=== PATIENT | male | born 1970 | race African-American/Black ===

== ENCOUNTER 2017-09-26 20:24 | Emergency (ER) | payer SELFPAY ==
[~2017-09-26 20:24] MED LIST: ISOVUE-370 76%-LOCM 1 ML ONE
[2017-09-26] MEDS ORDERED: Lidocaine 1% w/Epinephrine 1:200K 30 ML VIAL ONE (20:56)
[2017-09-26 21:32] LABS: #Basophils 0.1 thou/uL (0.0-0.2); #Eosinphils 0.1 thou/uL (0.0-0.7); #Lymphocytes 2.4 thou/uL (1.20-3.40); #Monocytes 0.7 thou/uL (0.11-0.59); #Neutrophils 7.4 thou/uL (1.40-6.50); %Basophils 0.6 % (0.0-1.0); %Eosinophils 0.7 % (0.0-10.0); %Lymphocytes 22.7 % (21.0-51.0); %Monocytes 6.5 % (0.0-10.0); Hematocrit 44.2 % (42.0-52.0); Mean Platelet Volume 7.8 fL (7.4-10.4); Red Blood Cell (RBC) Count 4.73 mill/uL (4.70-6.10); White Blood Cell (WBC) Count 10.6 thou/uL (4.8-10.8)
[2017-09-26] MEDS ORDERED: Morphine 4 MG/ML VIAL ONE (21:36)
[2017-09-26 21:54] LABS: ALT (SGPT) 8 U/L (8-55); AST (SGOT) 10 U/L (5-34); Alkaline Phosphatase 42 U/L (40-150); Anion Gap 13 mmol/L (10-20); BUN (Urea Nitrogen) 9 mg/dL (8.9-20.6); Bilirubin, Total 0.5 mg/dL (0.2-1.2); Calc. Creatinine Clearance 0 mL/min (70-130); Calcium 9.3 mg/dL (7.8-10.44); Carbon Dioxide 28 mmol/L (22-29); Chloride 104 mmol/L (98-107); Estimated GFR-MDRD 62; Globulin 3.3 g/dL (2.4-3.5)
--- NOTE | 2017-09-26 22:30 | CT ---
CT PELVIS WITH CONTRAST: 09/26/17 Multiple axial tomograms obtained through the pelvis with IV enhancement. HISTORY: Perianal abscess. FINDINGS: There is evidence of a perianal abscess seen posterior to the anus in the midline which measures appr oximately 2.5 cm. There is a thickened wall with surrounding inflammatory stranding, best appreciated in the sagittal projection. No intrapelvic abnormality seen. The visualized prostate, bladder and bowel loops appear unremarkable . The appendix is visualized and is normal in appearance. IMPRESSION: Evidence of a small perianal abscess. POS: [facility]
== END 2017-09-26 23:34 | disposition home or self-care (01) ==
LOC: ERS 20:24
DX: L02.215 Cutaneous abscess of perineum (principal); L03.317 Cellulitis of buttock; I10 Essential (primary) hypertension; F17.210 Nicotine dependence, cigarettes, uncomplicated
CPT/HCPCS: 36415; 46050; 72193; 80053; 85025; 96361; 96374; 99406; J2270

== ENCOUNTER 2018-09-21 00:08 | Emergency (ER) | payer SELFPAY | END 2018-09-21 01:41 | disposition home or self-care (01) | LOC: ERS 00:08 | DX: G56.01 Carpal tunnel syndrome, right upper limb (principal); I10 Essential (primary) hypertension; F17.210 Nicotine dependence, cigarettes, uncomplicated; Z79.899 Other long term (current) drug therapy | CPT/HCPCS: 99283 ==

== ENCOUNTER 2018-09-25 22:26 | Emergency (ER) | payer SELFPAY ==
--- NOTE | 2018-09-25 23:22 | RAD ---
RIGHT HAND: 09/25/18 Three views. HISTORY: Right hand pain. Carpals appear normally aligned. The metacarpals appear intact. There is slight deformity involving t he head and neck of the fifth metacarpal suggesting an old fracture injury. No acute fracture identif ied. Mild degenerative changes at the IP joints. IMPRESSION: Deformity of the distal fifth metacarpal suggests old injury. No acute fracture identified. POS: [facility]
== END 2018-09-25 23:39 | disposition home or self-care (01) ==
LOC: ERS 22:26
DX: G56.01 Carpal tunnel syndrome, right upper limb (principal); F17.210 Nicotine dependence, cigarettes, uncomplicated; I10 Essential (primary) hypertension; Z71.6 Tobacco abuse counseling; Z79.899 Other long term (current) drug therapy; W23.0XXA Caught, crushed, jammed, or pinched between moving objects, initial encounter

== ENCOUNTER 2019-03-25 14:32 | Emergency (ER) | payer SELFPAY ==
[2019-03-25] MEDS ORDERED: Ketorolac Tromethamine 30 MG/ML VIAL ONE ×2 (15:35→18:00)
[2019-03-25] MEDS ORDERED: Labetalol HCl 100 MG/20 ML VIAL ONE (15:35)
[2019-03-25] MEDS ORDERED: Ondansetron PF 4 MG/2 ML Vial ONE (15:36)
[2019-03-25] MEDS ORDERED: diphenhydrAMINE 50 MG/ML VIAL ONE (18:00)
[2019-03-25] MEDS ORDERED: Metoclopramide HCl 10 MG/2 ML VIAL ONE (18:00)
== END 2019-03-25 15:36 | disposition left against medical advice (07) ==
LOC: ERS 14:32
DX: R51 Headache (principal); R61 Generalized hyperhidrosis; R06.02 Shortness of breath; I10 Essential (primary) hypertension; F17.210 Nicotine dependence, cigarettes, uncomplicated
CPT/HCPCS: J1200; J1885; J2405; J2765

== ENCOUNTER 2019-03-25 17:24 | Observation (INO) | payer SELFPAY ==
[2019-03-25 18:07] LABS: #Basophils 0.1 thou/uL (0.0-0.2); #Eosinphils 0.1 thou/uL (0.0-0.7); #Lymphocytes 2.4 thou/uL (1.20-3.40); #Monocytes 0.3 thou/uL (0.11-0.59); #Neutrophils 3.5 thou/uL (1.40-6.50); %Basophils 1.3 % (0.0-1.0); %Eosinophils 1.5 % (0.0-10.0); %Lymphocytes 37.5 % (21.0-51.0); %Monocytes 4.2 % (0.0-10.0); %Neutrophils 55.6 % (42.0-75.0); Hemoglobin 15.2 g/dL (14.0-18.0); Mean Corpuscular HGB CONC 33.3 g/dL (32.0-36.0); Mean Corpuscular Hemoglobin 30.7 pg (27.0-31.0); Mean Corpuscular Volume 92.2 fL (78.0-98.0); Mean Platelet Volume 9.5 fL (7.4-10.4); Platelet Count 162 thou/uL (130-400); RBC Distribution Width 12.2 % (11.5-14.5); Red Blood Cell (RBC) Count 4.96 mill/uL (4.70-6.10); White Blood Cell (WBC) Count 6.3 thou/uL (4.8-10.8)
[2019-03-25] MEDS ORDERED: Ondansetron PF 4 MG/2 ML Vial ONE (18:36)
[2019-03-25] MEDS ORDERED: cloNIDine 0.1 MG TAB ONE ×2 (18:39→21:23)
--- NOTE | 2019-03-25 18:43 | CT ---
CT brain HISTORY: Headache. The patient does not give a history of trauma. Noncontrast enhanced images of the brain obtained. There is a left parietal scalp hematoma seen. Has there been acute trauma? No underlying calvarial fracture seen. No evidence of intracranial masses, hemorrhages or strokes seen. IMPRESSION: Left parietal scalp soft tissue density compatible with hematoma. No intracranial abnorma lity seen. Findings called to Dr. Finney at 6:39 PM on 03/25/2019. Code CR
--- NOTE | 2019-03-25 18:51 | RAD ---
AP view chest. HISTORY: Hypertension and headache. AP view chest is obtained. Cardiomegaly noted. Pulmonary vascular congestion seen. There is an area of linear density in the left midlung possibly representing atelectasis or patchy pn eumonia. IMPRESSION: Cardiomegaly and left midlung area of scar or pneumonia.
[2019-03-25 18:57] LABS: ALT (SGPT) 32 U/L (8-55); AST (SGOT) 23 U/L (5-34); Albumin 3.9 g/dL (3.5-5.0); Alkaline Phosphatase 52 U/L (40-150); Anion Gap 12 mmol/L (10-20); BUN (Urea Nitrogen) 14 mg/dL (8.9-20.6); Bilirubin, Total 0.4 mg/dL (0.2-1.2); Calc. Creatinine Clearance 0 mL/min (70-130); Calcium 9.7 mg/dL (7.8-10.44); Carbon Dioxide 26 mmol/L (22-29); Chloride 106 mmol/L (98-107); Estimated GFR-MDRD 55; Globulin 3.5 g/dL (2.4-3.5); Glucose 173 mg/dL (70-105); Potassium 4.1 mmol/L (3.5-5.1); Protein, Total 7.4 g/dL (6.0-8.3); Sodium 140 mmol/L (136-145)
[2019-03-25] MEDS ORDERED: hydrALAZINE 20 MG/ML VIAL ONE (20:12)
[2019-03-25] MEDS ORDERED: Nitroglycerin 2% Ointment 1 INCH/1 GM Packet ONE (22:49)
[2019-03-26] MEDS ORDERED: Ondansetron PF 4 MG/2 ML Vial IVP PRN ×2 (02:00→07:48)
[2019-03-26] MEDS ORDERED: Acetaminophen 325 MG TAB PO PRN ×2 (02:00→07:48)
[2019-03-26] MEDS ORDERED: Ondansetron ODT 4 MG TAB SL PRN (02:00)
[2019-03-26 02:40] LABS: Troponin I Less than 0.010 ng/mL (< 0.028)
[2019-03-26 06:01] LABS: Troponin I 0.024 ng/mL (< 0.028)
[2019-03-26] MEDS ORDERED: HYDROcodone/Acetaminophen 5/325 mg Tablet PO PRN (07:48)
[2019-03-26] MEDS ORDERED: Senokot S 8.6-50 MG TAB PO PRN (07:48)
[2019-03-26] MEDS ORDERED: Labetalol HCl 100 MG/20 ML VIAL SLOW IVP PRN (07:48)
[2019-03-26] MEDS ORDERED: cloNIDine 0.1 MG TAB PO PRN (07:48)
[2019-03-26] MEDS ORDERED: Diabetic Tussin 200 MG/10 ML UDCUP PO PRN (07:48)
[2019-03-26] MEDS ORDERED: Eucerin (Mineral Oil/Petrolatum,White) 30 gm Jar TOP PRN (07:48)
[2019-03-26] MEDS ORDERED: Bisacodyl 10 MG SUPP PR PRN (07:48)
[2019-03-26] MEDS ORDERED: Zolpidem Tartrate 5 MG TAB PO PRN (07:48)
[2019-03-26] MEDS ORDERED: Sodium Chloride 0.65% Nasal 44 ML BOT EA NARE PRN (07:48)
[2019-03-26] MEDS ORDERED: hydrALAZINE 20 MG/ML VIAL SLOW IVP PRN (07:48)
[2019-03-26] MEDS ORDERED: Loperamide HCl 2 MG CAP PO PRN (07:48)
[2019-03-26] MEDS ORDERED: Ondansetron ODT 4 MG TAB PO PRN (07:48)
[2019-03-26] MEDS ORDERED: Artificial Tears 18 DROP/0.9 ML EA EYE PRN (07:48)
[2019-03-26] MEDS ORDERED: Cepastat Lozenges 1 LOZ PO PRN (07:48)
[2019-03-26] MEDS ORDERED: Loratadine 10 MG TAB PO PRN (07:48)
[2019-03-26] MEDS ORDERED: Calcium Carbonate 500 MG ChewTAB PO PRN (07:48)
[2019-03-26] MEDS ORDERED: Famotidine 20 MG TAB PO SCH (09:00)
[2019-03-26] MEDS ORDERED: Lisinopril 20 MG TAB PO SCH (09:00)
[2019-03-26] MEDS ORDERED: Aspirin Chewable 81 MG TAB PO SCH (09:00)
[2019-03-26] MEDS ORDERED: Amlodipine 10 MG TAB PO SCH (09:00)
--- NOTE | 2019-03-26 11:34 | SS ---
DATE OF ADMISSION: 03/26/2019 DATE OF DISCHARGE: 03/26/2019 PRIMARY CARE PHYSICIAN: Dr. Hoyos. REASON FOR ADMISSION: Hypertensive urgency and chest pain. HISTORY OF PRESENT ILLNESS: A 48-year-old male, who has a history of hypertension. He was taking three different blood pressure medication, but he was not taking those medication for last three months because he ran out of medication and he did not follow up with primary care physician. The patient presented to emergency room because he was having headache, chest pain, dizziness, and shortness of breath. This was going on for last couple of days, but symptoms started yesterday, worse and that is why he decided to come to emergency room in afternoon time. In the emergency room, the patient was given several medication to control his blood pressure, but his blood pressure was high and he was having headache and that is why finally around midnight, ER physician decided to admit for further evaluation. When he presented to emergency room, his highest blood pressure was 228/121, which has been improved after emergency room treatment and the patient felt clinically better, but when they applied nitroglycerin patch that gave him headache again and he was having some weird, vague chest discomfort and shortness of breath. He had never been evaluated for heart. Initially this morning, the patient decided to go home, but when I saw him, and at that time explained him about the necessity of more evaluation and that he agreed for going for stress test. We decided to do stress test because he was complaining of chest pain, which was substernal without any radiation, without any association of nausea and vomiting. He denies any fever or chills. He denies any UTI symptoms. He denies any constipation, diarrhea, or melena. He denies any headache at this point. He denies any focal neurological deficit. He denies any illicit drug abuse. PAST MEDICAL HISTORY: Hypertension, medication noncompliance, and CKD stage 3. PAST SURGICAL HISTORY: Left hand surgery. PAST PSYCHIATRIC HISTORY: Reviewed and negative. SOCIAL HISTORY: The patient denies any alcohol abuse, denies any other illicit drug abuse. He quit smoking three weeks ago. FAMILY HISTORY: Hypertension and heart disease to his father. CURRENT HOME MEDICATIONS: The patient was not taking any medication, but he was on clonidine 0.1 mg b.i.d., amlodipine 10 mg daily, and lisinopril 20 mg p.o. daily. ALLERGIES: NO KNOWN DRUG ALLERGY. EMERGENCY ROOM COURSE: The patient was given nitroglycerin patch, hydralazine 10 mg, clonidine 0.1 mg, Zofran 4 mg, Reglan 10 mg, Toradol 15 mg, IV fluid 1 L, and Benadryl 25 mg. PHYSICAL EXAMINATION: VITAL SIGNS: Highest blood pressure in the emergency room 228/121, pulse 65, respiratory rate 18, temperature 97.9, and oxygen saturation 98% on room air. Weight 95.3 kg. GENERAL: The patient is currently alert and awake, in no obvious acute distress. HEENT: Head; normocephalic and atraumatic. Eyes; pupils are round and reactive to light. Extraocular muscle intact. ENT; oropharynx within normal limits. Moist mucous membranes. No oral lesion. No pharyngeal erythema. No exudate. NECK: Supple. No JVD. No thyromegaly. No carotid bruit. No jugular venous distention. LUNGS: Clear to auscultation without any rhonchi or rales. CARDIAC: S1 and S2 regular. No murmur. No gallop. No rub. ABDOMEN: Soft. Bowel sounds present. Nontender. Nondistended. No organomegaly. No mass. No suprapubic tenderness. BACK: Examination unremarkable. No CVA tenderness. EXTREMITIES: Upper extremities, passive movement of all joints are normal. Lower extremities, no edema. Good distal pulsation. SKIN: No skin rash. HEMATOLOGIC: No lymphadenopathy. NEUROLOGIC: Nonfocal examination. Cranial nerves 2 through 12 intact. Alert and oriented x3. Motor 5 x 5 in all 4 limbs. Sensations, symmetrical. Reflexes, normal. No cerebellar sign. Plantar bilateral flexor. Head examination, the patient does not have any evidence of hematoma or any tenderness on the scalp. ADDITIONAL INFORMATION: CT brain in the emergency room showed left parietal scalp soft tissue density compatible with hematoma, but this patient did not have any acute or subacute injury to that area and clinically, the patient does not have any hematoma on examination. SIGNIFICANT LABORATORY DATA: Chest x-ray based on my review, no acute cardiopulmonary process. CT brain reported a left scalp hematoma, but I mentioned clinically patient does not have any evidence of hematoma or any injury. CBC; WBC 6.3, hemoglobin 15.2, and platelets are 162. BMP; sodium 140, potassium 4.1, chloride 106, carbon dioxide 26, BUN 14, creatinine 1.65, glucose 173, calcium 9.7. LFT; AST 23, ALT 32, alkaline phosphatase 52, and albumin 3.9. Cardiac enzyme, negative x4. ASSESSMENT/PLAN: 1. Hypertensive urgency. This patient's clinical presentation with headache, dizziness, chest discomfort, and shortness of breath, all related with very high blood pressure on admission and that was related with his noncompliance with the treatment. At this point after emergency room treatment and starting his home medication, his blood pressure has been improved. We will monitor his blood pressure for few more hours. 2. Chest pain, most likely related with very high blood pressure. EKG is not showing any acute ischemic changes. Troponins are negative. For further evaluation, we will do stress test today and if stress test is negative, then the patient will be able to go home later on today. 3. Chronic kidney disease, stage 3. We will monitor renal function. We will check urinalysis and urine drug screen. 4. Medication noncompliance. The patient is given education about medication compliance. 5. Scalp hematoma. CT reported scalp hematoma, but when examined clinically, the patient does not have any evidence of scalp hematoma. 6. DVT prophylaxis, not needed because we are expecting discharge soon. 7. Gastrointestinal prophylaxis, Pepcid 20 mg p.o. b.i.d. CODE STATUS: The patient is full code. DISPOSITION PLAN: Based on stress test result. DISCHARGE DISPOSITION: Home. PRIMARY DISCHARGE DIAGNOSES: Hypertensive urgency, chest pain, ruled out acute coronary syndrome. SECONDARY DISCHARGE DIAGNOSES: Hypertension and CKD stage 3. PRIMARY PROCEDURE/OPERATION: None. RADIOLOGICAL INVESTIGATION: CT brain, chest x-ray, and stress test. SIGNIFICANT LABORATORY DATA: Creatinine 1.65. True cardiac enzyme, negative. CBC, normal. DISCHARGE MEDICATIONS: 1. Amlodipine 10 mg daily. 2. Clonidine 0.1 mg b.i.d. 3. Lisinopril 20 mg p.o. daily. CONTRAINDICATION: None. INPATIENT LINING FINISHER: None. ALLERGIES: NO KNOWN DRUG ALLERGIES. DISCHARGE PLAN: Posthospital, the patient will follow up with primary care physician in one week. HOSPITAL COURSE: A 48-year-old male, who was admitted for chest pain, shortness of breath, dizziness, and headache that was related with his hypertensive urgency in the emergency room, which was controlled with medication. His symptoms were improved with better blood pressure control. His troponins were negative. His EKG and monitor were unremarkable. We did stress tests and result is pending by the time of dictation. If stress test is negative, then the patient will be able to go home later on today with the above-mentioned medication. The patient is given education about medication compliance and he will follow up with primary care physician. STRESS TEST CAME NEGATIVE AND PT WAS INFORMED ABOUT RESULT, HE WANTED TO GO HOME PT IS ADMITTED AND DISCHARGED ON SAME DAY Job ID: [id number] [facility]
--- NOTE | 2019-03-26 12:45 | NM ---
EXAM: CARDIAC SPECT HISTORY: Chest pain TECHNIQUE: A myocardial perfusion scan was performed using the single isotope 1 day protocol with nikki hnetium 99m sestamibi. [10 mCi] was injected intravenously for the rest exam followed by 30 mCi for the stress study. Pharmacologic stress with adenosine was monitored and interpreted by Mani Cameron, nurse practitioner. FINDINGS: Homogeneous tracer distribution is seen in the myocardial segments on stress and rest image s without fixed or reversible defects. The left ventricular cavity is dilated. Gated SPECT LVEF: 43% Wall motion exam: Global hypokinesis IMPRESSION: No evidence of reversible ischemia
[2019-03-26 12:57] VITALS: BP 151/91
[2019-03-26 13:06] VITALS: TEMP 97.7
[2019-03-26 13:12] LABS: Bilirubin Small (Negative); Blood, Urine Negative (Negative); Clarity CLEAR (Clear); Glucose, Urine (Dipstick) Negative (Negative); Leukocyte Negative (Negative); Nitrite Negative (Negative); Protein, Urine (Dipstick) 100 mg/dL (Neg-Trace)
[2019-03-26 13:15] LABS: Bacteria/HPF None Seen HPF (None Seen); Hyaline Casts/LPF 4-6 HYALINE CAST LPF (0-3 Hyaline); Pathc Cast-AUWi Flag 0.54 (0-2.49); RBC/HPF 0-3 HPF (0-3); Squamous Epithelial 0-3 HPF (0-3)
[2019-03-26 13:26] LABS: Amphetamine Not Detected (NotDetected); Barbiturates Screen Not Detected (NotDetected); Benzodiazepine Screen Not Detected (NotDetected); Cocaine Metabolite Screen Not Detected (NotDetected); Medtox Control Line Valid? VALID (VALID); Medtox Reader # READER 1; Methadone Not Detected (NotDetected); Methamphetamine Not Detected (NotDetected); Opiate Screen Detected (NotDetected); Oxycodone Screen Not Detected (NotDetected); Phencyclidine (PCP) Not Detected (NotDetected); THC/Cannabinoid Screen Not Detected (NotDetected); Tricyclic Screen Not Detected (NotDetected)
[2019-03-26] MEDS ORDERED: ADENOSINE 60 MG/20 ML VIAL ONE (16:06)
--- NOTE | 2019-03-27 21:16 | PDOC.EVN ---
Event Note - Event Note Event Note: Pt given excuse to return to work, as per records he was released on the and able to work on the
== END 2019-03-26 14:52 | disposition home or self-care (01) ==
LOC: ERS 17:24 → 2SW 03-26 01:26
PROVIDERS: ADMIT Hospitalist; ATTEND Hospitalist
DX: I16.0 Hypertensive urgency (principal); R07.2 Precordial pain; I12.9 Hypertensive chronic kidney disease with stage 1 through stage 4 chronic kidney disease, or unspecified chronic kidney disease; N18.3 Chronic kidney disease, stage 3 (moderate); Z87.891 Personal history of nicotine dependence; Z79.899 Other long term (current) drug therapy; Z91.14 Patient's other noncompliance with medication regimen
CPT/HCPCS: 36415; 70450; 71045; 78452; 80053; 80306; 81003; 81015; 84484; 85025; 93005; 93017; 96361; 96365; 96375; A9500; G0378; J0153; J0360; J2405; Q0162

== ENCOUNTER 2019-07-20 01:00 | Emergency (ER) | payer OTHER, SELFPAY ==
[2019-07-20] MEDS ORDERED: Amlodipine 5 MG TAB ONE (03:06)
== END 2019-07-20 03:40 | disposition home or self-care (01) ==
LOC: ERS 01:00
DX: I10 Essential (primary) hypertension (principal); F17.210 Nicotine dependence, cigarettes, uncomplicated; Z76.0 Encounter for issue of repeat prescription; Z79.899 Other long term (current) drug therapy
CPT/HCPCS: 99283

== ENCOUNTER 2019-11-21 07:04 | Inpatient (IN) | payer OTHER, SELFPAY ==
[2019-11-21] MEDS ORDERED: hydrALAZINE 20 MG/ML VIAL ONE (07:43)
[2019-11-21] MEDS ORDERED: Nitroglycerin 2% Ointment 1 INCH/1 GM Packet ONE (07:43)
[2019-11-21] MEDS ORDERED: Aspirin Chewable 81 MG TAB ONE (07:43)
[2019-11-21 07:51] LABS: #Basophils 0.1 thou/uL (0.0-0.2); #Eosinphils 0.2 thou/uL (0.0-0.7); #Lymphocytes 2.6 thou/uL (1.20-3.40); #Monocytes 0.3 thou/uL (0.11-0.59); #Neutrophils 3.4 thou/uL (1.40-6.50); %Basophils 0.8 % (0.0-1.0); %Eosinophils 2.6 % (0.0-10.0); %Monocytes 5.2 % (0.0-10.0); %Neutrophils 51.5 % (42.0-75.0); Hemoglobin 15.5 g/dL (14.0-18.0); Mean Corpuscular HGB CONC 33.6 g/dL (32.0-36.0); Mean Corpuscular Hemoglobin 30.8 pg (27.0-31.0); Mean Corpuscular Volume 91.8 fL (78.0-98.0); Platelet Count 146 thou/uL (130-400); RBC Distribution Width 12.9 % (11.5-14.5); Red Blood Cell (RBC) Count 5.03 mill/uL (4.70-6.10); White Blood Cell (WBC) Count 6.6 thou/uL (4.8-10.8)
--- NOTE | 2019-11-21 07:59 | RAD ---
XR Chest 1 View Portable HISTORY: Chest pain and shortness of breath COMPARISON: 03/25/2019 FINDINGS: The heart size is prominent but stable. The lungs are well expanded without focal areas of consolidation, pneumothorax or pleural effusions. There is no evidence of mireya pulmonary edema. IMPRESSION: No radiographic evidence of acute cardiopulmonary process.
[2019-11-21] MEDS ORDERED: Diltiazem 125 MG/25 ML ONE (09:33)
[2019-11-21] MEDS ORDERED: niCARdipine 25 MG in Sodium Chloride 0.9% 250 ML 240 ML IVPB SCH (09:45)
[2019-11-21 10:02] LABS: ALT (SGPT) 19 U/L (8-55); AST (SGOT) 15 U/L (5-34); Albumin 3.9 g/dL (3.5-5.0); Alkaline Phosphatase 51 U/L (40-110); Anion Gap 9 mmol/L (10-20); BUN (Urea Nitrogen) 15 mg/dL (8.9-20.6); Bilirubin, Total 0.6 mg/dL (0.2-1.2); CK (CPK) 532 U/L (30-200); Calc. Creatinine Clearance 0 mL/min (70-130); Calcium 8.8 mg/dL (7.8-10.44); Carbon Dioxide 26 mmol/L (22-29); Chloride 109 mmol/L (98-107); Estimated GFR-MDRD 45; Globulin 3.2 g/dL (2.4-3.5); Glucose 109 mg/dL (70-105); Lipase 16 U/L (8-78); Protein, Total 7.1 g/dL (6.0-8.3); Sodium 140 mmol/L (136-145)
[2019-11-21] MEDS ORDERED: Iopamidol-370 76% 500 ML 1 ML ONE (10:20)
--- NOTE | 2019-11-21 10:53 | CT ---
CT PULMONARY ANGIOGRAM WITH IV CONTRAST AND 3-D POSTPROCESSING: HISTORY:Chest pain and shortness of breath FINDINGS: There is good contrast opacification of the pulmonary arterial vasculature without filling defects to suggest pulmonary embolism. The thoracic aorta is without aneurysm. No pleural or pericardial effusions are seen. No pneumothoraces, focal areas of consolidation or lung nodules are noted. There are degenerative changes in the spine. There are atrophic changes in the left pectoral musculat ure. IMPRESSION: No CT evidence of pulmonary embolism.
[2019-11-21 11:26] LABS: Acetaminophen Less than 6.0 mcg/mL (10.0-30.0); Alcohol Less than 10 mg/dL (Less than 10); Salicylate Less than 8.0 mg/dL (15.0-30.0)
[2019-11-21 11:49] LABS: Amphetamine Not Detected (NotDetected); Barbiturates Screen Not Detected (NotDetected); Benzodiazepine Screen Not Detected (NotDetected); Cocaine Metabolite Screen Not Detected (NotDetected); Medtox Control Line Valid? VALID (VALID); Medtox Reader # READER 4; Methadone Not Detected (NotDetected); Methamphetamine Not Detected (NotDetected); Opiate Screen Not Detected (NotDetected); Oxycodone Screen Not Detected (NotDetected); Phencyclidine (PCP) Not Detected (NotDetected); THC/Cannabinoid Screen Not Detected (NotDetected); Tricyclic Screen Not Detected (NotDetected)
[2019-11-21 13:12] LABS: Troponin I Less than 0.010 ng/mL (< 0.028)
[2019-11-21] MEDS ORDERED: cloNIDine 0.1 MG TAB PO SCH (14:00)
[2019-11-21] MEDS: Acetaminophen 325 MG TAB PO PRN ×2 (14:05→20:29)
[2019-11-21] MEDS: Nicotine 14 MG PATCH TD SCH (14:05)
[2019-11-21 14:28] VITALS: BMI 30.9
[2019-11-21 15:48] LABS: Troponin I Less than 0.010 ng/mL (< 0.028)
[2019-11-21] MEDS: hydrALAZINE 25 MG TAB PO SCH ×2 (17:44→20:29)
[2019-11-21] MEDS: Famotidine 20 MG TAB PO SCH (20:29)
[2019-11-21] MEDS: cloNIDine 0.1 MG TAB PO SCH (20:29)
--- NOTE | 2019-11-21 23:35 | HP ---
CHIEF COMPLAINT: Chest pain, shortness of breath. HISTORY OF PRESENT ILLNESS: The patient is a 49-year-old male with a past medical history of diabetes and hypertension, who presents to the hospital with complaints of chest pain and shortness of breath x1 day. The patient stated that his blood pressure has been high for the past few weeks. He has been having palpitations at times. However, today, he started having chest pain and shortness of breath, so he came into the hospital for further evaluation. The patient states that he has been compliant with his medications. However, he has been eating very salty foods, canned foods, frozen meals, and has been drinking a lot of soda. The patient denies any fevers or chills, any nausea, vomiting, or diarrhea. PAST MEDICAL HISTORY: Has a history of hypertension, diabetes. He has chronic kidney disease stage 3. SOCIAL HISTORY: He currently smokes half a pack a day. Denies any alcohol use, any drug use. He is a full code. Lives with his . FAMILY HISTORY: History of diabetes. ALLERGIES: NO KNOWN DRUG ALLERGIES. MEDICATIONS: 1. Clonidine 0.1 twice a day. 2. Lisinopril 20 mg daily. 3. Amlodipine 10 mg daily. PHYSICAL EXAMINATION: VITAL SIGNS: Temperature was 97.7. His respirations were 18. His blood pressure initially in the ER 224/139. CV: S1 and S2 present. No murmurs, rubs, or gallops. LUNGS: Clear to auscultation. No rhonchi or wheezes noted. ABDOMEN: Soft, obese, nontender. Bowel sounds are present x2. He does have some epigastric tenderness. EXTREMITIES: Lower extremity, no edema. Pedal pulses are present x2. Neurovascular jimenez, no focal deficits noted. SKIN: No cuts, lesions or bruises noted. LABORATORY RESULTS: WBC is 6.6, hemoglobin of 15.5, hematocrit of 46.2. Chemistry; sodium 140, potassium of 4.0, BUN of 15, creatinine of 1.93. His troponin x3 were negative. BNP was 124. The patient had a CTA, which was negative for PE. He has had a stress test which was done in March, which indicated an EF of 49% with global hypokinesia. ASSESSMENT AND PLAN: The patient is a 49-year-old male, who presents to the hospital with chest pain and shortness of breath. 1. Hypertensive urgency. The patient initially was on a Cardene drip. His blood pressure then improved to 150s. At this time, he was transitioned to oral antihypertensives. I have advised him and educated him about his diet intake, which has a lot to do with his uncontrolled blood pressure. We will titrate his blood pressure medications and hope that he will improve. We will also get an echocardiogram. The patient currently has no chest pain. His troponins x3 were negative. His BNP has been mildly elevated. 2. Obesity. He has been advised to weight loss. 3. Smoking. I will put him on a patch. I have advised him against smoking. 4. Deep venous thrombosis prophylaxis. We will put the patient on SCDs. Job ID: [id number]
[2019-11-22] MEDS ORDERED: hydrALAZINE 20 MG/ML VIAL SLOW IVP PRN (04:16)
[2019-11-22 04:37] LABS: #Eosinphils 0.2 thou/uL (0.0-0.7); #Lymphocytes 2.2 thou/uL (1.20-3.40); #Monocytes 0.4 thou/uL (0.11-0.59); #Neutrophils 4.1 thou/uL (1.40-6.50); %Basophils 0.5 % (0.0-1.0); %Eosinophils 2.4 % (0.0-10.0); %Lymphocytes 32.2 % (21.0-51.0); Hemoglobin 14.2 g/dL (14.0-18.0); Mean Corpuscular HGB CONC 33.3 g/dL (32.0-36.0); Mean Corpuscular Hemoglobin 30.5 pg (27.0-31.0); Mean Corpuscular Volume 91.6 fL (78.0-98.0); Mean Platelet Volume 9.4 fL (7.4-10.4); Platelet Count 137 thou/uL (130-400); RBC Distribution Width 12.9 % (11.5-14.5); Red Blood Cell (RBC) Count 4.66 mill/uL (4.70-6.10); White Blood Cell (WBC) Count 6.9 thou/uL (4.8-10.8)
[2019-11-22 04:48] LABS: Anion Gap 10 mmol/L (10-20); BUN (Urea Nitrogen) 16 mg/dL (8.9-20.6); Calc. Creatinine Clearance 69 mL/min (70-130); Calcium 8.7 mg/dL (7.8-10.44); Carbon Dioxide 24 mmol/L (22-29); Chloride 111 mmol/L (98-107); Estimated GFR-MDRD 47; Glucose 106 mg/dL (70-105); Potassium 3.7 mmol/L (3.5-5.1); Sodium 141 mmol/L (136-145)
[2019-11-22] MEDS: hydrALAZINE 25 MG TAB PO SCH ×2 (08:39→12:50)
[2019-11-22] MEDS: cloNIDine 0.1 MG TAB PO SCH (08:39)
[2019-11-22] MEDS: Famotidine 20 MG TAB PO SCH (08:40)
[2019-11-22] MEDS ORDERED: Lisinopril 20 MG TAB PO SCH (09:00)
[2019-11-22] MEDS ORDERED: Amlodipine 10 MG TAB PO SCH (09:00)
[2019-11-22] MEDS ORDERED: Enoxaparin Sodium 40 MG/0.4 ML SYRINGE SC SCH (09:00)
[2019-11-22] MEDS: Nicotine 14 MG PATCH TD SCH (13:04)
[2019-11-22 15:32] VITALS: BP 157/98; TEMP 98.6
--- NOTE | 2019-11-22 17:15 | DIS ---
DATE OF ADMISSION: 11/21/2019 DATE OF DISCHARGE: 11/22/2019 DISCHARGE DIAGNOSES: 1. Chest pain. 2. Hypertensive urgency. 3. Chronic kidney disease, stage 3. HOSPITAL COURSE: The patient is a 49-year-old male, who initially presented to the hospital with chest pain. The patient states that he has been taking his blood pressure medication; however, his blood pressure has been very uncontrolled. He has been eating a lot of salty foods with TV dinners and canned foods. The patient states that he has been compliant with his medications at this time; however, they do not seem to be working. When he came into the ER, his systolic pressure was in the 200s and he was initially put on the Cardene drip. He was then titrated down to oral medications. His chest pain resolved. He had a stress test done in March of 2019, which indicated no evidence of reversible ischemia, wall motion was global hypokinesia and 43%. At this time, I went ahead and did an echocardiogram, which indicated an EF of 50% to 55% with normal right ventricular size and function, left atrium was moderately dilated, otherwise it was normal. The patient has been advised to be compliant with his diet, and smoking cessation has been advised also. HOME MEDICATIONS: Will be; 1. Nicotine 14 mg transdermal q.24, I have advised him not to smoke while he is on this. 2. Hydralazine 50 mg t.i.d. 3. Norvasc 10 mg daily. 4. Clonidine 0.1 b.i.d. 5. Lisinopril 20 mg p.o. daily. 6. I am going to add atorvastatin 20 mg daily. PHYSICAL EXAMINATION: VITAL SIGNS: Temperature of 98.1, pulse 77, respirations 12, oxygen saturation 96% on room air, and blood pressure 152/84. GENERAL: He is awake, alert, and oriented x3. Does not appear in distress. CV: S1 and S2 present. No murmurs, rubs, or gallops. The patient is currently chest pain free. I will be discharging him. He has an appointment with his primary care doctor on Sunday. The patient has been asked to refrain from any salty meals. Job ID: [id number]
== END 2019-11-22 16:26 | disposition home or self-care (01) | DRG 305 ==
LOC: ERS 07:04 → 2NO 11:44
PROVIDERS: ADMIT Internal Medicine; ATTEND Internal Medicine
DX: I16.0 Hypertensive urgency (principal); F17.210 Nicotine dependence, cigarettes, uncomplicated; E11.22 Type 2 diabetes mellitus with diabetic chronic kidney disease; I12.9 Hypertensive chronic kidney disease with stage 1 through stage 4 chronic kidney disease, or unspecified chronic kidney disease; N18.3 Chronic kidney disease, stage 3 (moderate); E66.9 Obesity, unspecified; R07.9 Chest pain, unspecified; Z91.19 Patient's noncompliance with other medical treatment and regimen; Z79.899 Other long term (current) drug therapy; Z68.30 Body mass index [BMI] 30.0-30.9, adult
CPT/HCPCS: 36415; 71045; 71275; 80048; 80053; 80306; 80307; 82550; 83690; 83880; 84484; 85025; 85379; 90471; 90732; 93005; 93306; G0009; J0360; J1650; J7050; Q9967

== ENCOUNTER 2019-12-02 22:00 | Emergency (ER) | payer SELFPAY ==
[2019-12-02 22:41] LABS: #Basophils 0.1 thou/uL (0.0-0.2); #Eosinphils 0.1 thou/uL (0.0-0.7); #Lymphocytes 2.5 thou/uL (1.20-3.40); #Monocytes 0.4 thou/uL (0.11-0.59); #Neutrophils 3.6 thou/uL (1.40-6.50); %Basophils 0.8 % (0.0-1.0); %Eosinophils 1.3 % (0.0-10.0); %Lymphocytes 38.1 % (21.0-51.0); %Monocytes 5.4 % (0.0-10.0); %Neutrophils 54.4 % (42.0-75.0); Hemoglobin 15.1 g/dL (14.0-18.0); Mean Corpuscular HGB CONC 33.7 g/dL (32.0-36.0); Mean Platelet Volume 8.7 fL (7.4-10.4); Platelet Count 206 thou/uL (130-400); RBC Distribution Width 12.4 % (11.5-14.5); Red Blood Cell (RBC) Count 4.87 mill/uL (4.70-6.10); White Blood Cell (WBC) Count 6.6 thou/uL (4.8-10.8)
--- NOTE | 2019-12-02 22:48 | RAD ---
XR Chest 1 View Portable HISTORY: Chest pain COMPARISON: 11/21/2019 study. FINDINGS: Heart size is enlarged. Aorta is mildly tortuous. The lungs are clear of infiltrates. There are no signs of failure. IMPRESSION: Cardiomegaly. Stable chest.
[2019-12-02 23:02] LABS: ALT (SGPT) 16 U/L (8-55); AST (SGOT) 14 U/L (5-34); Albumin 3.9 g/dL (3.5-5.0); Alkaline Phosphatase 52 U/L (40-110); Anion Gap 11 mmol/L (10-20); BUN (Urea Nitrogen) 29 mg/dL (8.9-20.6); Bilirubin, Total 0.3 mg/dL (0.2-1.2); Calc. Creatinine Clearance 0 mL/min (70-130); Carbon Dioxide 25 mmol/L (22-29); Chloride 108 mmol/L (98-107); Estimated GFR-MDRD 40; Globulin 3.3 g/dL (2.4-3.5); Glucose 130 mg/dL (70-105); Magnesium 2.1 mg/dL (1.6-2.6); Protein, Total 7.2 g/dL (6.0-8.3); Sodium 140 mmol/L (136-145)
== END 2019-12-03 00:01 | disposition left against medical advice (07) ==
LOC: ERS 22:00
DX: R07.9 Chest pain, unspecified (principal); I10 Essential (primary) hypertension; F17.210 Nicotine dependence, cigarettes, uncomplicated; Z79.899 Other long term (current) drug therapy
CPT/HCPCS: 36415; 71045; 80053; 83735; 84484; 85025; 93005

== ENCOUNTER 2021-04-17 22:31 | Inpatient (IN) | payer OTHER, SELFPAY ==
[2021-04-17 23:04] LABS: #Eosinphils 0.1 thou/uL (0.0-0.7); #Lymphocytes 2.4 thou/uL (1.20-3.40); #Monocytes 0.6 thou/uL (0.11-0.59); %Basophils 0.5 % (0.0-1.0); %Eosinophils 1.2 % (0.0-10.0); %Monocytes 6.9 % (0.0-10.0); %Neutrophils 61.5 % (42.0-75.0); Hemoglobin 15.4 g/dL (14.0-18.0); Mean Corpuscular Hemoglobin 31.9 pg (27.0-31.0); Mean Corpuscular Volume 91.3 fL (78.0-98.0); Mean Platelet Volume 9.4 fL (7.4-10.4); Platelet Count 169 thou/uL (130-400); RBC Distribution Width 13.2 % (11.5-14.5); Red Blood Cell (RBC) Count 4.83 mill/uL (4.70-6.10); White Blood Cell (WBC) Count 8.2 thou/uL (4.8-10.8)
[2021-04-17] MEDS ORDERED: hydrALAZINE 20 MG/ML VIAL ONE (23:04)
[2021-04-17] MEDS ORDERED: Nitroglycerin 2% Ointment 1 INCH/1 GM Packet ONE (23:04)
[2021-04-17] MEDS ORDERED: Aspirin 325 MG TAB ONE (23:04)
[2021-04-17 23:27] LABS: ALT (SGPT) 20 U/L (8-55); AST (SGOT) 17 U/L (5-34); Albumin 4.1 g/dL (3.5-5.0); Alkaline Phosphatase 54 U/L (40-110); Anion Gap 17 mmol/L (10-20); BUN (Urea Nitrogen) 19 mg/dL (8.9-20.6); Bilirubin, Total 0.6 mg/dL (0.2-1.2); Calc. Creatinine Clearance 0 mL/min (70-130); Calcium 9.6 mg/dL (7.8-10.44); Carbon Dioxide 24 mmol/L (22-29); Chloride 106 mmol/L (98-107); Globulin 3.7 g/dL (2.4-3.5); Glucose 109 mg/dL (70-105); Potassium 3.5 mmol/L (3.5-5.1); Protein, Total 7.8 g/dL (6.0-8.3); Sodium 143 mmol/L (136-145)
[2021-04-17 23:46] LABS: CKMB 2.6 ng/mL (0-6.6)
[2021-04-17] MEDS ORDERED: Labetalol HCl 100 MG/20 ML VIAL ONE (23:52)
[2021-04-18] MEDS ORDERED: Acetaminophen 325 MG TAB PO PRN (01:02)
[2021-04-18] MEDS ORDERED: niCARdipine 25 MG in Sodium Chloride 0.9% 250 ML 240 ML IVPB PRN (01:02)
[2021-04-18] MEDS ORDERED: Ondansetron PF 4 MG/2 ML Vial IVP PRN (01:02)
[2021-04-18] MEDS ORDERED: Ondansetron ODT 4 MG TAB PO PRN (01:02)
[2021-04-18] MEDS ORDERED: Acetaminophen 650 MG Suppository PR PRN (01:02)
[2021-04-18] MEDS ORDERED: niCARdipine 20MG In NaCl 20 MG/200 ML BAG ONE ×3 (01:14→04:45)
[2021-04-18 02:30] LABS: Anion Gap 17 mmol/L (10-20); BUN (Urea Nitrogen) 19 mg/dL (8.9-20.6); Calc. Creatinine Clearance 0 mL/min (70-130); Calcium 9.4 mg/dL (7.8-10.44); Carbon Dioxide 19 mmol/L (22-29); Chloride 107 mmol/L (98-107); Glucose 123 mg/dL (70-105); Potassium 3.6 mmol/L (3.5-5.1); Sodium 139 mmol/L (136-145)
[2021-04-18 02:37] LABS: SARS-CoV-2 NAA Rapid Test Not Detected (NotDetected)
[2021-04-18] MEDS ORDERED: Enoxaparin Sodium 30 MG/0.3 ML SYRINGE SC SCH (09:00)
== END 2021-04-18 04:58 | disposition short-term general hospital (02) | DRG 305 ==
LOC: EEVIPCON 22:31 → ERS 22:31 → ERHOLD 04-18 00:33
PROVIDERS: ADMIT Family Medicine; ATTEND Family Medicine
DX: I16.1 Hypertensive emergency (principal); N17.9 Acute kidney failure, unspecified; Z20.822 Contact with and (suspected) exposure to COVID-19; I12.9 Hypertensive chronic kidney disease with stage 1 through stage 4 chronic kidney disease, or unspecified chronic kidney disease; N18.9 Chronic kidney disease, unspecified; Z87.891 Personal history of nicotine dependence; Z79.899 Other long term (current) drug therapy
CPT/HCPCS: 36415; 71045; 80048; 80053; 82553; 84443; 84484; 85025; 93005; 96365; 96375; J0360; U0002; U0005

== ENCOUNTER 2022-05-02 09:11 | Inpatient (IN) | payer SELFPAY ==
[2022-05-02 10:03] LABS: #Eosinphils 0.1 thou/uL (0.0-0.7); #Lymphocytes 1.9 thou/uL (1.20-3.40); #Monocytes 0.5 thou/uL (0.11-0.59); %Basophils 0.4 % (0.0-1.0); %Eosinophils 2.2 % (0.0-10.0); %Lymphocytes 29.6 % (21.0-51.0); %Monocytes 7.2 % (0.0-10.0); %Neutrophils 60.6 % (42.0-75.0); Hemoglobin 15.1 g/dL (14.0-18.0); Mean Corpuscular HGB CONC 33.1 g/dL (32.0-36.0); Mean Corpuscular Hemoglobin 31.2 pg (27.0-31.0); Mean Corpuscular Volume 94.3 fL (78.0-98.0); Mean Platelet Volume 10.4 fL (7.4-10.4); Platelet Count 146 thou/uL (130-400); RBC Distribution Width 12.9 % (11.5-14.5); Red Blood Cell (RBC) Count 4.84 mill/uL (4.70-6.10); White Blood Cell (WBC) Count 6.6 thou/uL (4.8-10.8)
[2022-05-02 10:13] LABS: ALT (SGPT) 10 U/L (8-55); AST (SGOT) 10 U/L (5-34); Albumin 3.6 g/dL (3.5-5.0); Alkaline Phosphatase 49 U/L (40-110); Anion Gap 13 mmol/L (10-20); BUN (Urea Nitrogen) 30 mg/dL (8.9-20.6); Bilirubin, Total 0.4 mg/dL (0.2-1.2); Calc. Creatinine Clearance 0 mL/min (70-130); Calcium 9.1 mg/dL (7.8-10.44); Carbon Dioxide 26 mmol/L (22-29); Chloride 101 mmol/L (98-107); Estimated GFR 17; Globulin 3.4 g/dL (2.4-3.5); Glucose 242 mg/dL (70-105); Lipase 28 U/L (8-78); Potassium 3.4 mmol/L (3.5-5.1); Sodium 137 mmol/L (136-145)
[2022-05-02] MEDS ORDERED: hydrALAZINE 20 MG/ML VIAL ONE (10:21)
[2022-05-02 10:33] LABS: CKMB 1.5 ng/mL (0-6.6)
[2022-05-02] MEDS ORDERED: niCARdipine 25 MG/10 ML VIAL ONE (11:12)
[2022-05-02] MEDS ORDERED: Dextrose 50% Abboject 50 ML SYRINGE SLOW IVP PRN (12:15)
[2022-05-02] MEDS ORDERED: Dextrose 5% in Water 1,000 ML IV PRN (12:15)
[2022-05-02] MEDS ORDERED: Ondansetron PF 4 MG/2 ML Vial IVP PRN (12:15)
[2022-05-02] MEDS ORDERED: Acetaminophen 500 MG TAB PO PRN (12:15)
[2022-05-02] MEDS ORDERED: Ondansetron ODT 4 MG TAB PO PRN (12:15)
[2022-05-02] MEDS ORDERED: HumaLOG 300 UNITS/3 ML VIAL SC PRN (12:15)
[2022-05-02] MEDS ORDERED: niCARdipine 25 MG in Sodium Chloride 0.9% 250 ML 250 ML IVPB SCH (12:30)
[2022-05-02 13:34] LABS: Troponin I 0.083 ng/mL (< 0.028)
[2022-05-02 14:35] LABS: Bacteria/HPF None Seen HPF (None Seen); Bilirubin Negative (Negative); Blood, Urine Negative (Negative); Clarity Clear (Clear); Glucose, Urine (Dipstick) 30 mg/dL (Negative); Ketone, Urine Negative (Negative); Leukocyte Negative Leu/uL (Negative); Nitrite Negative (Negative); Protein, Urine (Dipstick) 50 mg/dL (Neg-Trace); RBC/HPF 0-3 HPF (0-3); Specific Gravity, Urine 1.008 (1.002-1.036); Squamous Epithelial None Seen HPF (0-3); Urobilinogen Normal mg/dL (Less than 2); WBC/HPF 0-3 HPF (0-3)
[2022-05-02 16:21] LABS: SARS-CoV-2 NAA Rapid Test Not Detected (NotDetected)
[2022-05-02 16:50] LABS: Troponin I 0.092 ng/mL (< 0.028)
[2022-05-02] MEDS: Labetalol HCl 100 MG/20 ML VIAL SLOW IVP PRN ×2 (17:10→21:17)
[2022-05-02] MEDS ORDERED: Amlodipine 5 MG TAB PO SCH (18:00)
[2022-05-02] MEDS ORDERED: hydrALAZINE 25 MG TAB PO SCH (18:00)
[2022-05-02] MEDS: hydrALAZINE 20 MG/ML VIAL SLOW IVP PRN (20:07)
[2022-05-02] MEDS: Carvedilol 25 MG TAB PO SCH (20:07)
[2022-05-02] MEDS ORDERED: Famotidine 20 MG TAB PO SCH (21:00)
[2022-05-02] MEDS: HumaLOG 300 UNITS/3 ML VIAL SC PRN (21:31)
[2022-05-02 21:47] VITALS: BMI 34.1
[2022-05-03] MEDS: hydrALAZINE 20 MG/ML VIAL SLOW IVP PRN ×2 (02:16→16:34)
[2022-05-03 03:58] LABS: #Eosinphils 0.1 thou/uL (0.0-0.7); #Lymphocytes 1.9 thou/uL (1.20-3.40); #Monocytes 0.5 thou/uL (0.11-0.59); #Neutrophils 4.8 thou/uL (1.40-6.50); %Basophils 0.1 % (0.0-1.0); %Eosinophils 1.2 % (0.0-10.0); %Lymphocytes 26.3 % (21.0-51.0); %Monocytes 7.1 % (0.0-10.0); %Neutrophils 65.3 % (42.0-75.0); Hemoglobin 15.6 g/dL (14.0-18.0); Mean Corpuscular HGB CONC 33.2 g/dL (32.0-36.0); Mean Corpuscular Hemoglobin 31.2 pg (27.0-31.0); Mean Corpuscular Volume 94.1 fL (78.0-98.0); Mean Platelet Volume 10.1 fL (7.4-10.4); Platelet Count 149 thou/uL (130-400); RBC Distribution Width 13.1 % (11.5-14.5); Red Blood Cell (RBC) Count 4.99 mill/uL (4.70-6.10); White Blood Cell (WBC) Count 7.3 thou/uL (4.8-10.8)
[2022-05-03 04:10] LABS: Hemoglobin A1c 7.5 % (4.0-6.0)
[2022-05-03 04:12] LABS: Phosphorus 2.9 mg/dL (2.3-4.7)
[2022-05-03 04:20] LABS: ALT (SGPT) 9 U/L (8-55); AST (SGOT) 10 U/L (5-34); Albumin 3.4 g/dL (3.5-5.0); Alkaline Phosphatase 44 U/L (40-110); Anion Gap 15 mmol/L (10-20); BUN (Urea Nitrogen) 29 mg/dL (8.9-20.6); Bilirubin, Total 0.8 mg/dL (0.2-1.2); Calc. Creatinine Clearance 36 mL/min (70-130); Calcium 8.8 mg/dL (7.8-10.44); Carbon Dioxide 25 mmol/L (22-29); Chloride 104 mmol/L (98-107); Estimated GFR 19; Globulin 3.2 g/dL (2.4-3.5); Glucose 103 mg/dL (70-105); Potassium 3.5 mmol/L (3.5-5.1); Protein, Total 6.6 g/dL (6.0-8.3); Sodium 140 mmol/L (136-145)
[2022-05-03] MEDS: Carvedilol 25 MG TAB PO SCH ×2 (07:15→20:24)
[2022-05-03] MEDS: hydrALAZINE 25 MG TAB PO SCH ×2 (07:15→20:23)
[2022-05-03] MEDS ORDERED: Amlodipine 5 MG TAB PO SCH ×2 (09:00→09:45)
[2022-05-03] MEDS: HumaLOG 300 UNITS/3 ML VIAL SC PRN (11:10)
[2022-05-03 20:12] LABS: Amphetamine Not Detected (NotDetected); Barbiturates Screen Not Detected (NotDetected); Benzodiazepine Screen Not Detected (NotDetected); Cocaine Metabolite Screen Not Detected (NotDetected); Methadone Not Detected (NotDetected); Methamphetamine Not Detected (NotDetected); Opiate Screen Not Detected (NotDetected); Oxycodone Screen Not Detected (NotDetected); Phencyclidine (PCP) Not Detected (NotDetected); THC/Cannabinoid Screen Not Detected (NotDetected); Tricyclic Screen Not Detected (NotDetected)
[2022-05-03] MEDS ORDERED: Famotidine 20 MG TAB PO SCH (21:00)
[2022-05-03] MEDS ORDERED: Hydrochlorothiazide 25 MG TAB PO SCH (21:45)
[2022-05-03] MEDS ORDERED: hydrALAZINE 25 MG TAB PO SCH (21:45)
[2022-05-04] MEDS: Labetalol HCl 100 MG/20 ML VIAL SLOW IVP PRN (00:19)
[2022-05-04 04:50] LABS: #Eosinphils 0.1 thou/uL (0.0-0.7); #Lymphocytes 2.5 thou/uL (1.20-3.40); #Monocytes 0.5 thou/uL (0.11-0.59); #Neutrophils 3.7 thou/uL (1.40-6.50); %Basophils 0.6 % (0.0-1.0); %Eosinophils 1.4 % (0.0-10.0); %Lymphocytes 36.7 % (21.0-51.0); %Monocytes 6.7 % (0.0-10.0); %Neutrophils 54.6 % (42.0-75.0); Hemoglobin 14.8 g/dL (14.0-18.0); Mean Corpuscular HGB CONC 32.3 g/dL (32.0-36.0); Mean Corpuscular Hemoglobin 30.7 pg (27.0-31.0); Mean Platelet Volume 10.2 fL (7.4-10.4); Platelet Count 139 thou/uL (130-400); Red Blood Cell (RBC) Count 4.84 mill/uL (4.70-6.10); White Blood Cell (WBC) Count 6.8 thou/uL (4.8-10.8)
[2022-05-04 05:11] LABS: Anion Gap 13 mmol/L (10-20); BUN (Urea Nitrogen) 31 mg/dL (8.9-20.6); Calc. Creatinine Clearance 33 mL/min (70-130); Calcium 9.3 mg/dL (7.8-10.44); Carbon Dioxide 26 mmol/L (22-29); Chloride 104 mmol/L (98-107); Estimated GFR 17; Glucose 121 mg/dL (70-105); Potassium 3.7 mmol/L (3.5-5.1); Sodium 139 mmol/L (136-145)
[2022-05-04] MEDS: hydrALAZINE 20 MG/ML VIAL SLOW IVP PRN (05:45)
[2022-05-04] MEDS ORDERED: NIFEdipine XL 60 MG TAB PO SCH ×2 (09:00→21:00)
[2022-05-04] MEDS ORDERED: Amlodipine 10 MG TAB PO SCH (09:00)
[2022-05-04] MEDS ORDERED: Hydrochlorothiazide 25 MG TAB PO SCH (09:00)
[2022-05-04] MEDS: hydrALAZINE 25 MG TAB PO SCH ×2 (09:45→15:26)
[2022-05-04] MEDS: Carvedilol 25 MG TAB PO SCH (09:47)
[2022-05-04 12:43] VITALS: BP 131/78; TEMP 98.3
== END 2022-05-04 17:50 | disposition home or self-care (01) | DRG 683 ==
LOC: ERS 09:11 → ERHOLD 11:51 → CCU 16:35 → 2NO 05-03 12:33
PROVIDERS: ADMIT Family Medicine; ATTEND Hospitalist
DX: N17.9 Acute kidney failure, unspecified (principal); I16.1 Hypertensive emergency; I13.0 Hypertensive heart and chronic kidney disease with heart failure and stage 1 through stage 4 chronic kidney disease, or unspecified chronic kidney disease; N18.4 Chronic kidney disease, stage 4 (severe); I16.0 Hypertensive urgency; Z20.822 Contact with and (suspected) exposure to COVID-19; R79.89 Other specified abnormal findings of blood chemistry; E87.6 Hypokalemia; E11.65 Type 2 diabetes mellitus with hyperglycemia; I50.9 Heart failure, unspecified; D63.1 Anemia in chronic kidney disease; E11.22 Type 2 diabetes mellitus with diabetic chronic kidney disease; Z83.3 Family history of diabetes mellitus; Z79.899 Other long term (current) drug therapy; Z82.49 Family history of ischemic heart disease and other diseases of the circulatory system; Z87.891 Personal history of nicotine dependence; Z91.14 Patient's other noncompliance with medication regimen
CPT/HCPCS: 36415; 36416; 70450; 71045; 80048; 80053; 80306; 81003; 81015; 82553; 83036; 83690; 83735; 83880; 84100; 84443; 84484; 85025; 93005; 93306; 94760; J0360; J1815; J7050; U0002

== ENCOUNTER 2022-08-12 22:02 | Inpatient (IN) | payer SELFPAY ==
[2022-08-12] MEDS ORDERED: Nitroglycerin 0.4 MG TAB 1 EACH ONE (22:44)
[2022-08-12] MEDS ORDERED: Aspirin Chewable 81 MG TAB ONE (22:44)
[2022-08-12 23:23] LABS: #Eosinphils 0.1 thou/uL (0.0-0.7); #Lymphocytes 2.4 thou/uL (1.20-3.40); #Monocytes 0.6 thou/uL (0.11-0.59); #Neutrophils 5.9 thou/uL (1.40-6.50); %Basophils 0.1 % (0.0-1.0); %Eosinophils 1.6 % (0.0-10.0); %Lymphocytes 26.6 % (21.0-51.0); %Monocytes 6.2 % (0.0-10.0); %Neutrophils 65.5 % (42.0-75.0); Hemoglobin 13.6 g/dL (14.0-18.0); Mean Corpuscular HGB CONC 33.2 g/dL (32.0-36.0); Mean Corpuscular Hemoglobin 30.8 pg (27.0-31.0); Mean Corpuscular Volume 92.8 fL (78.0-98.0); Mean Platelet Volume 9.6 fL (7.4-10.4); Platelet Count 146 thou/uL (130-400); RBC Distribution Width 13.7 % (11.5-14.5); Red Blood Cell (RBC) Count 4.43 mill/uL (4.70-6.10)
[2022-08-12] MEDS ORDERED: hydrALAZINE 20 MG/ML VIAL ONE (23:31)
[2022-08-12 23:38] LABS: ALT (SGPT) 31 U/L (8-55); AST (SGOT) 22 U/L (5-34); Albumin 3.5 g/dL (3.5-5.0); Alkaline Phosphatase 53 U/L (40-110); Anion Gap 12 mmol/L (10-20); BUN (Urea Nitrogen) 45 mg/dL (8.9-20.6); Bilirubin, Total 0.5 mg/dL (0.2-1.2); Calc. Creatinine Clearance 0 mL/min (70-130); Calcium 8.7 mg/dL (7.8-10.44); Carbon Dioxide 26 mmol/L (22-29); Chloride 107 mmol/L (98-107); Estimated GFR 14; Globulin 2.8 g/dL (2.4-3.5); Glucose 187 mg/dL (70-105); Potassium 3.7 mmol/L (3.5-5.1); Protein, Total 6.3 g/dL (6.0-8.3); Sodium 141 mmol/L (136-145)
[2022-08-12 23:40] LABS: Acetaminophen Less than 10.0 mcg/mL (10.0-30.0); Alcohol Less than 10 mg/dL (Less than 10); Salicylate Less than 8.0 mg/dL (15.0-30.0)
[2022-08-12] MEDS ORDERED: Doxycycline 100 MG CAP PO SCH (23:45)
[2022-08-13] LABS: CKMB 1.7 ng/mL (0-6.6)
[2022-08-13] MEDS ORDERED: Ondansetron PF 4 MG/2 ML Vial ONE (00:50)
[2022-08-13] MEDS ORDERED: Electrolyte Replacement Protocol 1 EACH FS SCH (01:00)
[2022-08-13] MEDS ORDERED: Nitroglycerin 0.4 MG TAB (25 Tab Bottle) SL PRN (01:01)
[2022-08-13] MEDS ORDERED: Ondansetron ODT 4 MG TAB PO PRN (01:01)
[2022-08-13] MEDS ORDERED: Acetaminophen 650 MG Suppository PR PRN (01:01)
[2022-08-13] MEDS ORDERED: Ondansetron PF 4 MG/2 ML Vial IVP PRN (01:01)
[2022-08-13] MEDS ORDERED: hydrALAZINE 20 MG/ML VIAL SLOW IVP PRN (01:04)
[2022-08-13] MEDS ORDERED: Labetalol HCl 100 MG/20 ML VIAL SLOW IVP PRN (01:04)
[2022-08-13] MEDS ORDERED: Morphine 4 MG/ML VIAL SLOW IVP PRN (01:27)
[2022-08-13] MEDS ORDERED: Dextrose 50% Abboject 50 ML SYRINGE SLOW IVP PRN (01:29)
[2022-08-13] MEDS ORDERED: Dextrose 5% in Water 1,000 ML IV PRN (01:29)
[2022-08-13] MEDS ORDERED: HumaLOG 300 UNITS/3 ML VIAL SC PRN (01:29)
[2022-08-13] MEDS ORDERED: Furosemide 40 MG/4 ML VIAL SLOW IVP SCH (01:30)
[2022-08-13] MEDS ORDERED: Nitroglycerin 2% Ointment 1 INCH/1 GM Packet TOP SCH (01:45)
[2022-08-13] MEDS ORDERED: NIFEdipine XL 60 MG TAB PO SCH ×3 (02:00→15:45)
[2022-08-13] MEDS ORDERED: Nitroglycerin 2% Ointment 1 INCH/1 GM Packet ONE (02:02)
[2022-08-13] MEDS ORDERED: Furosemide 40 MG/4 ML VIAL ONE (02:02)
[2022-08-13] MEDS ORDERED: Acetaminophen 325 MG TAB ONE (02:21)
[2022-08-13 02:28] LABS: Troponin I 0.059 ng/mL (< 0.028)
[2022-08-13] MEDS ORDERED: Nitroglycerin 50 MG/250 ML BOT 250 ML ONE (02:28)
[2022-08-13] MEDS: Acetaminophen 325 MG TAB PO PRN ×2 (02:29→14:12)
[2022-08-13 03:51] LABS: SARS-CoV-2 NAA Rapid Test Not Detected (NotDetected)
[2022-08-13] MEDS ORDERED: Nitroglycerin 50 MG/250 ML BOT 250 ML IVPB SCH (04:15)
[2022-08-13 08:01] LABS: #Lymphocytes 1.6 thou/uL (1.20-3.40); #Monocytes 0.4 thou/uL (0.11-0.59); #Neutrophils 6.5 thou/uL (1.40-6.50); %Basophils 0.3 % (0.0-1.0); %Eosinophils 0.5 % (0.0-10.0); %Lymphocytes 18.8 % (21.0-51.0); %Monocytes 4.9 % (0.0-10.0); %Neutrophils 75.6 % (42.0-75.0); Hemoglobin 13.7 g/dL (14.0-18.0); Mean Corpuscular HGB CONC 32.8 g/dL (32.0-36.0); Mean Corpuscular Hemoglobin 30.3 pg (27.0-31.0); Mean Corpuscular Volume 92.5 fL (78.0-98.0); Mean Platelet Volume 9.5 fL (7.4-10.4); Platelet Count 162 thou/uL (130-400); RBC Distribution Width 13.7 % (11.5-14.5); Red Blood Cell (RBC) Count 4.51 mill/uL (4.70-6.10); White Blood Cell (WBC) Count 8.6 thou/uL (4.8-10.8)
[2022-08-13 08:14] LABS: Anion Gap 12 mmol/L (10-20); BUN (Urea Nitrogen) 43 mg/dL (8.9-20.6); Calc. Creatinine Clearance 27 mL/min (70-130); Calcium 9.3 mg/dL (7.8-10.44); Carbon Dioxide 28 mmol/L (22-29); Chloride 107 mmol/L (98-107); Estimated GFR 14; Glucose 151 mg/dL (70-105); Potassium 3.7 mmol/L (3.5-5.1); Sodium 143 mmol/L (136-145)
[2022-08-13 08:17] LABS: Troponin I 0.056 ng/mL (< 0.028)
[2022-08-13] MEDS: Carvedilol 25 MG TAB PO SCH ×2 (08:35→20:37)
[2022-08-13] MEDS: Furosemide 40 MG/4 ML VIAL SLOW IVP SCH (08:35)
[2022-08-13] MEDS: Aspirin Chewable 81 MG TAB PO SCH (08:35)
[2022-08-13] MEDS: hydrALAZINE 25 MG TAB PO SCH ×3 (08:35→20:37)
[2022-08-13] MEDS: Heparin 5,000 UNITS/ML VIAL SC SCH ×3 (08:36→20:37)
[2022-08-13] MEDS ORDERED: FLU VACC QS2022-23(6MOS UP)/PF 60 MCG/0.5 ML SYRINGE IM ONE (09:00)
[2022-08-13] MEDS: HumaLOG 300 UNITS/3 ML VIAL SC PRN ×2 (14:57→17:06)
[2022-08-13 16:54] LABS: Amphetamine Not Detected (NotDetected); Barbiturates Screen Not Detected (NotDetected); Benzodiazepine Screen Not Detected (NotDetected); Cocaine Metabolite Screen Not Detected (NotDetected); Methadone Not Detected (NotDetected); Methamphetamine Not Detected (NotDetected); Opiate Screen Not Detected (NotDetected); Oxycodone Screen Not Detected (NotDetected); Phencyclidine (PCP) Not Detected (NotDetected); THC/Cannabinoid Screen Not Detected (NotDetected); Tricyclic Screen Not Detected (NotDetected)
[2022-08-14] MEDS: Carvedilol 25 MG TAB PO SCH ×2 (08:52→16:08)
[2022-08-14] MEDS: Aspirin Chewable 81 MG TAB PO SCH (08:53)
[2022-08-14] MEDS: Furosemide 40 MG/4 ML VIAL SLOW IVP SCH (08:54)
[2022-08-14] MEDS: Heparin 5,000 UNITS/ML VIAL SC SCH ×3 (08:54→21:15)
[2022-08-14] MEDS: hydrALAZINE 25 MG TAB PO SCH ×3 (08:54→21:12)
[2022-08-14] MEDS ORDERED: NIFEdipine XL 60 MG TAB PO SCH ×2 (09:00)
[2022-08-14] MEDS ORDERED: NIFEdipine XL 90 MG TAB PO SCH (09:00)
[2022-08-14 10:36] LABS: Anion Gap 14 mmol/L (10-20); BUN (Urea Nitrogen) 42 mg/dL (8.9-20.6); Calc. Creatinine Clearance 25 mL/min (70-130); Calcium 9.1 mg/dL (7.8-10.44); Carbon Dioxide 26 mmol/L (22-29); Chloride 104 mmol/L (98-107); Estimated GFR 13; Glucose 242 mg/dL (70-105); Potassium 3.6 mmol/L (3.5-5.1); Sodium 140 mmol/L (136-145)
[2022-08-14 17:44] LABS: Creatinine, Urine 89.55 mg/dL (63-166)
[2022-08-14] MEDS: Tamsulosin HCl 0.4 MG CAP PO SCH (21:12)
[2022-08-15 07:43] LABS: Anion Gap 15 mmol/L (10-20); BUN (Urea Nitrogen) 47 mg/dL (8.9-20.6); Calc. Creatinine Clearance 23 mL/min (70-130); Calcium 9.3 mg/dL (7.8-10.44); Carbon Dioxide 24 mmol/L (22-29); Chloride 104 mmol/L (98-107); Estimated GFR 12; Glucose 108 mg/dL (70-105); Potassium 3.5 mmol/L (3.5-5.1); Sodium 139 mmol/L (136-145)
[2022-08-15] MEDS: NIFEdipine XL 90 MG TAB PO SCH (08:23)
[2022-08-15] MEDS: Aspirin Chewable 81 MG TAB PO SCH (08:23)
[2022-08-15] MEDS: Carvedilol 25 MG TAB PO SCH ×2 (08:23→16:46)
[2022-08-15] MEDS: Heparin 5,000 UNITS/ML VIAL SC SCH ×3 (08:24→20:52)
[2022-08-15] MEDS: hydrALAZINE 25 MG TAB PO SCH ×3 (08:24→21:28)
[2022-08-15] MEDS: cloNIDine 0.2 MG TAB PO SCH ×3 (09:27→21:27)
[2022-08-15] MEDS: Tamsulosin HCl 0.4 MG CAP PO SCH (20:53)
[2022-08-16 05:27] VITALS: BMI 31.4
[2022-08-16] MEDS: HumaLOG 300 UNITS/3 ML VIAL SC PRN (05:38)
[2022-08-16 06:21] VITALS: TEMP 97.8
[2022-08-16 06:52] LABS: Anion Gap 15 mmol/L (10-20); BUN (Urea Nitrogen) 52 mg/dL (8.9-20.6); Calc. Creatinine Clearance 22 mL/min (70-130); Calcium 9.1 mg/dL (7.8-10.44); Carbon Dioxide 24 mmol/L (22-29); Chloride 105 mmol/L (98-107); Estimated GFR 12; Glucose 128 mg/dL (70-105); Potassium 3.5 mmol/L (3.5-5.1); Sodium 140 mmol/L (136-145)
[2022-08-16] MEDS: hydrALAZINE 25 MG TAB PO SCH (07:55)
[2022-08-16] MEDS: Aspirin Chewable 81 MG TAB PO SCH (07:55)
[2022-08-16] MEDS: NIFEdipine XL 90 MG TAB PO SCH (07:55)
[2022-08-16] MEDS: Carvedilol 25 MG TAB PO SCH (07:55)
[2022-08-16] MEDS: Heparin 5,000 UNITS/ML VIAL SC SCH (07:56)
[2022-08-16] MEDS: cloNIDine 0.2 MG TAB PO SCH (07:56)
[2022-08-16 10:02] VITALS: BP 143/95
[2022-08-22] MEDS ORDERED: Ergocalciferol 1.25 MG(50,000 UNITS) CAP PO SCH (09:00)
== END 2022-08-16 13:10 | disposition home or self-care (01) | DRG 291 ==
LOC: ERS 22:02 → ERHOLD 08-13 00:24 → OBSVTOIN 08-13 00:24 → CCU 08-13 03:41 → T4-B 08-14 11:10
PROVIDERS: ADMIT Internal Medicine; ATTEND Internal Medicine
DX: I13.2 Hypertensive heart and chronic kidney disease with heart failure and with stage 5 chronic kidney disease, or end stage renal disease (principal); I50.33 Acute on chronic diastolic (congestive) heart failure; I16.1 Hypertensive emergency; N17.9 Acute kidney failure, unspecified; N18.5 Chronic kidney disease, stage 5; N25.81 Secondary hyperparathyroidism of renal origin; Z20.822 Contact with and (suspected) exposure to COVID-19; E78.5 Hyperlipidemia, unspecified; I25.10 Atherosclerotic heart disease of native coronary artery without angina pectoris; I16.0 Hypertensive urgency; E11.22 Type 2 diabetes mellitus with diabetic chronic kidney disease; D63.1 Anemia in chronic kidney disease; E66.9 Obesity, unspecified; F17.210 Nicotine dependence, cigarettes, uncomplicated; Z79.899 Other long term (current) drug therapy; Z91.14 Patient's other noncompliance with medication regimen; Z68.31 Body mass index [BMI] 31.0-31.9, adult
CPT/HCPCS: 36415; 36416; 71045; 76770; 80048; 80053; 80306; 80307; 82306; 82553; 82570; 83735; 83880; 83970; 84156; 84484; 85025; 93005; 94760; 96374; 96375; 96376; J0360; J1644; J1815; J1940; J2405; U0002